=== PATIENT | female | born 1980 | race Caucasian/White ===

== ENCOUNTER 2020-12-20 19:13 | Emergency (ER) | payer BC ==
[~2020-12-20 19:13] MED LIST: Benzonatate 100 MG CAP ONE; HYDROcodone/Acetaminophen 5/325 mg Tablet ONE; methylPREDNISolone Sod Succ/PF 125 MG/2 ML VIAL ONE
[2020-12-20 23:41] LABS: #Lymphocytes 1.6 thou/uL (1.20-3.40); #Monocytes 0.4 thou/uL (0.11-0.59); #Neutrophils 10.9 thou/uL (1.40-6.50); %Basophils 0.2 % (0.0-1.0); %Eosinophils 0.4 % (0.0-10.0); %Lymphocytes 12.1 % (21.0-51.0); %Monocytes 3.2 % (0.0-10.0); %Neutrophils 84.1 % (42.0-75.0); Hemoglobin 12.3 g/dL (12.0-16.0); Mean Corpuscular HGB CONC 33.3 g/dL (32.0-36.0); Mean Corpuscular Hemoglobin 30.1 pg (27.0-31.0); Mean Corpuscular Volume 90.4 fL (78.0-98.0); Mean Platelet Volume 5.7 fL (7.4-10.4); Platelet Count 296 thou/uL (130-400); RBC Distribution Width 12.2 % (11.5-14.5)
[2020-12-20 23:46] LABS: ALT (SGPT) 63 U/L (8-55); AST (SGOT) 39 U/L (5-34); Albumin 4.1 g/dL (3.5-5.0); Alkaline Phosphatase 96 U/L (40-110); Anion Gap 18 mmol/L (10-20); BUN (Urea Nitrogen) 8 mg/dL (7.0-18.7); Bilirubin, Total 0.3 mg/dL (0.2-1.2); Calc. Creatinine Clearance 0 mL/min (70-130); Calcium 9.3 mg/dL (7.8-10.44); Carbon Dioxide 23 mmol/L (22-29); Chloride 100 mmol/L (98-107); Globulin 3.4 g/dL (2.4-3.5); Glucose 132 mg/dL (70-105); Potassium 3.9 mmol/L (3.5-5.1); Protein, Total 7.5 g/dL (6.0-8.3); Sodium 137 mmol/L (136-145)
== END 2020-12-20 22:24 | disposition home or self-care (01) ==
LOC: BURERS 19:13
DX: U07.1 COVID-19 (principal); I10 Essential (primary) hypertension
CPT/HCPCS: 71045; 80053; 85025; 94640; 94760; 96374; J2930

== ENCOUNTER 2021-02-24 09:06 | Outpatient (CLI) | payer BC | END 2021-02-24 09:07 | disposition home or self-care (01) | LOC: BURCT 09:06 | PROVIDERS: ATTEND Internal Medicine Pulmonary Disease | DX: J69.0 Pneumonitis due to inhalation of food and vomit (principal); R91.8 Other nonspecific abnormal finding of lung field | CPT/HCPCS: 71250 ==